=== PATIENT | male | born 1960 | race Caucasian/White ===

== ENCOUNTER 2021-07-23 13:50 | Inpatient (IN) ==
[2021-07-23 14:56] LABS: ABS Basophils 0.1 10^3/ul (0-0.2); ABS Eosinophils 0.2 10^3/ul (0-0.6); ABS Lymphocytes 1.1 10^3/ul (1.0-4.8); ABS Monocytes 0.9 10^3/ul (0-0.8); ABS Neutrophils 11.5 10^3/ul (1.5-7.7); Eosinophil % 1.3 %; Hematocrit 25 % (42-52); Hemoglobin 8.1 g/dL (14.0-18.0); Lymphocyte % 8.3 %; Mean Corpuscular HGB Conc 32 g/dL (31-36); Mean Corpuscular Hemoglobin 27 pg (27-31); Mean Corpuscular Volume 86 fL (80-94); Platelet Count 390 10^3/uL (150-450); Red Blood Count 2.95 10^6 /uL (4.18-5.48); Red Cell Distribution Width 16 % (10-15); White Blood Count 13.9 10^3/uL (3.5-10.8)
[2021-07-23] MEDS ORDERED: Vancomycin per Pharmacy 1 EA NOTE FOLLOW UP SCH (15:00)
[2021-07-23 15:04] LABS: Activated Partial Thrombo Time 39.4 seconds (26.0-38.0); INR 2.19 (0.86-1.15)
[2021-07-23 15:09] LABS: Albumin 3.6 g/dL (3.2-5.2); Potassium 3.8 mmol/L (3.5-5.0); Total Bilirubin 0.7 mg/dL (0.2-1.0)
[2021-07-23 15:15] LABS: C Reactive Protein 130.72 mg/L (<8.01); Globulin 3.7 g/dL (2-4); Total Protein 7.3 g/dL (6.4-8.9); eGFR CKD-EPI 6.8 (>60)
[2021-07-23] MEDS ORDERED: Vancomycin per Pharmacy 1 EA NOTE FOLLOW UP PRN (15:21)
[2021-07-23] MEDS ORDERED: Vancomycin 1,500 MG in NS 0.9% 250 ml 250 ML IVPB ONE (15:30)
[2021-07-23] MEDS ORDERED: Vancomycin - DIALYSIS DOSING 1 EA NOTE FOLLOW UP SCH (16:00)
[2021-07-23] MEDS: Cefepime 2 GM in Dextrose 2 GM/50 ML BAG IV SCH (16:46)
[2021-07-23] MEDS ORDERED: Insulin GLARGINE 100 un/ml 10 ml VIAL SUBCUT SCH (21:00)
[2021-07-23] MEDS ORDERED: Enoxaparin 100 MG/ML SYR SUBCUT SCH (21:00)
[2021-07-23] MEDS: Metoprolol Succinate XL 200 mg TAB PO SCH (21:36)
[2021-07-23] MEDS: Insulin GLARGINE 100 un/ml 10 ml VIAL SUBCUT SCH (21:37)
[2021-07-23] MEDS: Heparin DRIP 25,000 UNITS BAG 25,000 UNITS/500 ML BAG IV SCH (22:47)
[2021-07-24 07:24] LABS: ABS Basophils 0.1 10^3/ul (0-0.2); ABS Eosinophils 0.2 10^3/ul (0-0.6); ABS Lymphocytes 1.1 10^3/ul (1.0-4.8); ABS Monocytes 0.9 10^3/ul (0-0.8); ABS Neutrophils 11.1 10^3/ul (1.5-7.7); Eosinophil % 1.4 %; Hematocrit 24 % (42-52); Hemoglobin 7.7 g/dL (14.0-18.0); Lymphocyte % 8.6 %; Mean Corpuscular HGB Conc 32 g/dL (31-36); Mean Corpuscular Hemoglobin 28 pg (27-31); Mean Corpuscular Volume 86 fL (80-94); Mean Platelet Volume 6.8 fL (7.4-10.4); Platelet Count 329 10^3/uL (150-450); Red Blood Count 2.78 10^6 /uL (4.18-5.48); Red Cell Distribution Width 16 % (10-15); White Blood Count 13.4 10^3/uL (3.5-10.8)
[2021-07-24 07:33] LABS: Activated Partial Thrombo Time 38.4 seconds (26.0-38.0); INR 2.07 (0.86-1.15)
[2021-07-24] MEDS: Heparin 5000 UNITS/ML 1 mL VIAL IV SCH ×2 (07:58→20:45)
[2021-07-24 08:04] LABS: Calcium 8.5 mg/dL (8.6-10.3); Potassium 4.3 mmol/L (3.5-5.0)
[2021-07-24] MEDS: Isosorbide Mononit ER 60mg TAB PO SCH (08:12)
[2021-07-24] MEDS: NFT: Multivitamins/Mins AREDS2 (NF) CAP PO SCH (10:26)
[2021-07-24 10:27] LABS: C Reactive Protein 107.69 mg/L (<8.01)
[2021-07-24] MEDS: Ondansetron ODT 4 mg TAB 4 MG TAB PO PRN (13:21)
[2021-07-24] MEDS: Heparin DRIP 25,000 UNITS BAG 25,000 UNITS/500 ML BAG IV SCH (16:11)
[2021-07-24 19:43] LABS: Hepatitis B Surface Antigen Nonreactive (Nonreactive)
[2021-07-24 19:48] LABS: Hepatitis B Core IgM Nonreactive (Nonreactive)
[2021-07-24 20:01] LABS: Hepatitis B Surface Ab Not Immune (Immune)
[2021-07-24] MEDS: Insulin GLARGINE 100 un/ml 10 ml VIAL SUBCUT SCH (20:07)
[2021-07-24] MEDS: Metoprolol Succinate XL 200 mg TAB PO SCH (20:09)
[2021-07-25 03:26] LABS: ABS Basophils 0.1 10^3/ul (0-0.2); ABS Eosinophils 0.1 10^3/ul (0-0.6); ABS Lymphocytes 0.9 10^3/ul (1.0-4.8); ABS Monocytes 0.7 10^3/ul (0-0.8); ABS Neutrophils 9.8 10^3/ul (1.5-7.7); Hematocrit 25 % (42-52); Hemoglobin 7.9 g/dL (14.0-18.0); Lymphocyte % 7.7 %; Mean Corpuscular HGB Conc 32 g/dL (31-36); Mean Corpuscular Hemoglobin 27 pg (27-31); Mean Corpuscular Volume 86 fL (80-94); Mean Platelet Volume 7.3 fL (7.4-10.4); Nucleated Red Blood Cells % 0.1; Platelet Count 325 10^3/uL (150-450); Red Blood Count 2.92 10^6 /uL (4.18-5.48); Red Cell Distribution Width 16 % (10-15); White Blood Count 11.6 10^3/uL (3.5-10.8)
[2021-07-25 05:36] LABS: Calcium 8.8 mg/dL (8.6-10.3); Magnesium 2.4 mg/dL (1.9-2.7); Potassium 4.9 mmol/L (3.5-5.0); Vancomycin Random 9.9 mcg/mL; eGFR CKD-EPI 7.4 (>60)
[2021-07-25] MEDS ORDERED: Vancomycin Random Level NOTE FOLLOW UP ONE (06:00)
[2021-07-25] MEDS: NFT: Multivitamins/Mins AREDS2 (NF) CAP PO SCH (07:29)
[2021-07-25] MEDS: Heparin 5000 UNITS/ML 1 mL VIAL IV SCH ×2 (10:34→21:46)
[2021-07-25] MEDS: Isosorbide Mononit ER 60mg TAB PO SCH (11:50)
[2021-07-25] MEDS ORDERED: fentaNYL 250 mcg/5 ml 50 MCG/ML 5 ml VIAL (250 MCG) ONE (14:34)
[2021-07-25] MEDS ORDERED: Phenylephrine 40 mcg/mL 10mL (400mcg) SYRINGE ONE (14:36)
[2021-07-25] MEDS ORDERED: Propofol 10 MG/ML 20 ML BTL ONE (14:36)
[2021-07-25] MEDS ORDERED: Labetalol IV 5 MG/ML 20 ml VIAL ONE (14:36)
[2021-07-25] MEDS ORDERED: Phenylephrine IV 10 MG/ML 1 ml VIAL ONE (14:36)
[2021-07-25] MEDS ORDERED: EPHEDrine (Pressors) 50 MG/ML VIAL ONE (14:36)
[2021-07-25] MEDS ORDERED: Ondansetron 4 mg VIAL 2 MG/ML 2 ml VIAL ONE (14:36)
[2021-07-25] MEDS ORDERED: Esmolol 10 MG/ML 10 ML (100 mg) ONE (14:36)
[2021-07-25] MEDS ORDERED: Cisatracurium 2 MG/ML MDV 5 ML ONE ×2 (14:38→17:10)
[2021-07-25] MEDS ORDERED: Midazolam 2 mg/2 ml VIAL 1 mg/ml 2 ml VIAL (2 mg) ONE (14:38)
[2021-07-25] MEDS ORDERED: Succinylcholine 200 mg VIAL 20 mg/ml 10 ml VIAL (200 mg) ONE (14:40)
[2021-07-25] MEDS ORDERED: Heparin 1,000 UNIT/ML 10 ml (10,000 UNITS) CATHLAB/DIALYSIS ONE (15:07)
[2021-07-25] MEDS ORDERED: Iodixanol 320 (CONTRAST) 100 ML SDV ONE (15:18)
[2021-07-25] MEDS ORDERED: Lidocaine 1% MPF 5 ML VIAL ONE (15:18)
[2021-07-25] MEDS ORDERED: Heparin 2 UNITS/ML IVPREMIX 3,000 UNIT/1,500 ML BAG IV ONE (15:19)
[2021-07-25] MEDS ORDERED: nitroGLYCERIN DRIP (PHA MIX) 25,000 MCG/250 ML BAG ONE (15:43)
[2021-07-25] MEDS ORDERED: Vancomycin 1,250 MG IV x ONCE IVPB ONE (18:00)
[2021-07-25] MEDS ORDERED: Propofol 10 mg/ml 100 ML BTL 100 ML ONE (19:06)
[2021-07-25] MEDS: Propofol 10 mg/ml 100 ML BTL 100 ML IV SCH ×2 (19:56→22:51)
[2021-07-25 21:46] LABS: PCO2 Arterial 35 mmHg (35-45); PO2 Arterial 214 mmHg (80-100)
[2021-07-25] MEDS: Cefepime 2 GM in Dextrose 2 GM/50 ML BAG IV SCH (21:46)
[2021-07-25] MEDS ORDERED: Insulin GLARGINE 100 un/ml 10 ml VIAL SUBCUT ONE (22:05)
[2021-07-25] MEDS: Insulin GLARGINE 100 un/ml 10 ml VIAL SUBCUT SCH (22:09)
[2021-07-26] MEDS: Heparin DRIP 25,000 UNITS BAG 25,000 UNITS/500 ML BAG IV SCH ×2 (01:37→14:48)
[2021-07-26] MEDS: Propofol 10 mg/ml 100 ML BTL 100 ML IV SCH ×2 (01:38→05:14)
[2021-07-26 04:02] LABS: ABS Basophils 0.1 10^3/ul (0-0.2); ABS Eosinophils 0.1 10^3/ul (0-0.6); ABS Monocytes 0.7 10^3/ul (0-0.8); ABS Neutrophils 8.6 10^3/ul (1.5-7.7); Eosinophil % 1.4 %; Hematocrit 20 % (42-52); Hemoglobin 6.8 g/dL (14.0-18.0); Lymphocyte % 9.2 %; Mean Corpuscular HGB Conc 34 g/dL (31-36); Mean Corpuscular Hemoglobin 29 pg (27-31); Mean Corpuscular Volume 85 fL (80-94); Platelet Count 276 10^3/uL (150-450); Red Blood Count 2.39 10^6 /uL (4.18-5.48); Red Cell Distribution Width 16 % (10-15); White Blood Count 10.5 10^3/uL (3.5-10.8)
[2021-07-26 05:21] LABS: Calcium 7.7 mg/dL (8.6-10.3); Magnesium 2.3 mg/dL (1.9-2.7); Potassium 4.6 mmol/L (3.5-5.0)
[2021-07-26 06:29] LABS: eGFR CKD-EPI 6.5 (>60)
[2021-07-26] MEDS: NFT: Multivitamins/Mins AREDS2 (NF) CAP PO SCH (08:17)
[2021-07-26] MEDS: oxyCODONE/Acetamin 5/325 mg TAB PO PRN (16:17)
[2021-07-26] MEDS ORDERED: Magnesium Sulfate IV 1GM/100ML 1 GM/100 ML BAG IV ONE (17:27)
[2021-07-26] MEDS ORDERED: Lorazepam PYXIS KEY ONE (17:37)
[2021-07-26] MEDS: Insulin GLARGINE 100 un/ml 10 ml VIAL SUBCUT SCH (21:43)
[2021-07-27] MEDS: Heparin DRIP 25,000 UNITS BAG 25,000 UNITS/500 ML BAG IV SCH ×2 (02:55→15:40)
[2021-07-27 04:51] LABS: ABS Basophils 0.1 10^3/ul (0-0.2); ABS Eosinophils 0.2 10^3/ul (0-0.6); ABS Lymphocytes 0.8 10^3/ul (1.0-4.8); ABS Neutrophils 8.7 10^3/ul (1.5-7.7); Eosinophil % 1.4 %; Hematocrit 23 % (42-52); Hemoglobin 7.4 g/dL (14.0-18.0); Lymphocyte % 7.7 %; Mean Corpuscular HGB Conc 33 g/dL (31-36); Mean Corpuscular Hemoglobin 28 pg (27-31); Mean Corpuscular Volume 87 fL (80-94); Mean Platelet Volume 7.5 fL (7.4-10.4); Platelet Count 284 10^3/uL (150-450); Red Blood Count 2.61 10^6 /uL (4.18-5.48); Red Cell Distribution Width 16 % (10-15); White Blood Count 10.8 10^3/uL (3.5-10.8)
[2021-07-27 04:54] LABS: INR 1.93 (0.86-1.15)
[2021-07-27 05:56] LABS: Calcium 8.6 mg/dL (8.6-10.3); Magnesium 2.6 mg/dL (1.9-2.7); Potassium 4.6 mmol/L (3.5-5.0)
[2021-07-27 06:07] LABS: eGFR CKD-EPI 7.9 (>60)
[2021-07-27] MEDS ORDERED: Multivitamins/Minerals TAB PO SCH (09:00)
[2021-07-27] MEDS: Isosorbide Mononit ER 60mg TAB PO SCH (09:22)
[2021-07-27] MEDS: oxyCODONE/Acetamin 5/325 mg TAB PO PRN (10:51)
[2021-07-27] MEDS: Insulin GLARGINE 100 un/ml 10 ml VIAL SUBCUT SCH (21:45)
[2021-07-28] MEDS: Heparin DRIP 25,000 UNITS BAG 25,000 UNITS/500 ML BAG IV SCH ×2 (04:13→18:10)
[2021-07-28] MEDS ORDERED: Vancomycin Random Level NOTE FOLLOW UP ONE (06:00)
[2021-07-28 06:14] LABS: ABS Basophils 0.1 10^3/ul (0-0.2); ABS Eosinophils 0.1 10^3/ul (0-0.6); ABS Lymphocytes 0.9 10^3/ul (1.0-4.8); ABS Monocytes 0.7 10^3/ul (0-0.8); ABS Neutrophils 7.6 10^3/ul (1.5-7.7); Eosinophil % 1.5 %; Hematocrit 24 % (42-52); Lymphocyte % 9.3 %; Mean Corpuscular HGB Conc 33 g/dL (31-36); Mean Corpuscular Hemoglobin 28 pg (27-31); Mean Corpuscular Volume 86 fL (80-94); Mean Platelet Volume 7.1 fL (7.4-10.4); Platelet Count 276 10^3/uL (150-450); Red Blood Count 2.86 10^6 /uL (4.18-5.48); Red Cell Distribution Width 16 % (10-15); White Blood Count 9.5 10^3/uL (3.5-10.8)
[2021-07-28 07:37] LABS: Calcium 8.7 mg/dL (8.6-10.3); Magnesium 2.8 mg/dL (1.9-2.7); Potassium 5.4 mmol/L (3.5-5.0); Vancomycin Random 16.1 mcg/mL
[2021-07-28] MEDS: oxyCODONE/Acetamin 5/325 mg TAB PO PRN ×2 (08:20→15:53)
[2021-07-28] MEDS: Isosorbide Mononit ER 60mg TAB PO SCH (08:21)
[2021-07-28] MEDS: PTO:Multivitamins/Mins AREDS2 (NF) CAP PO SCH (10:09)
[2021-07-28 15:01] LABS: C Reactive Protein 165.08 mg/L (<8.01)
[2021-07-28] MEDS: Cefepime 2 GM in Dextrose 2 GM/50 ML BAG IV SCH (16:21)
[2021-07-28] MEDS ORDERED: Vancomycin 1000 MG in NS 0.9% 250 ML IVPB ONE (18:00)
[2021-07-28] MEDS: Insulin GLARGINE 100 un/ml 10 ml VIAL SUBCUT SCH (20:27)
[2021-07-29 05:57] LABS: Calcium 8.5 mg/dL (8.6-10.3); Magnesium 2.4 mg/dL (1.9-2.7); Potassium 4.4 mmol/L (3.5-5.0)
[2021-07-29 06:01] LABS: eGFR CKD-EPI 9.3 (>60)
[2021-07-29 06:02] LABS: ABS Basophils 0.1 10^3/ul (0-0.2); ABS Eosinophils 0.2 10^3/ul (0-0.6); ABS Lymphocytes 0.8 10^3/ul (1.0-4.8); ABS Monocytes 0.7 10^3/ul (0-0.8); ABS Neutrophils 6.1 10^3/ul (1.5-7.7); Hematocrit 26 % (42-52); Hemoglobin 8.5 g/dL (14.0-18.0); Lymphocyte % 10.2 %; Mean Corpuscular HGB Conc 33 g/dL (31-36); Mean Corpuscular Hemoglobin 29 pg (27-31); Mean Corpuscular Volume 88 fL (80-94); Mean Platelet Volume 7.6 fL (7.4-10.4); Platelet Count 276 10^3/uL (150-450); Red Blood Count 2.93 10^6 /uL (4.18-5.48); Red Cell Distribution Width 17 % (10-15); White Blood Count 7.8 10^3/uL (3.5-10.8)
[2021-07-29] MEDS: Heparin DRIP 25,000 UNITS BAG 25,000 UNITS/500 ML BAG IV SCH ×2 (06:22→20:01)
[2021-07-29] MEDS: Isosorbide Mononit ER 60mg TAB PO SCH (08:44)
[2021-07-29] MEDS: PTO:Multivitamins/Mins AREDS2 (NF) CAP PO SCH (10:38)
[2021-07-29] MEDS: Insulin GLARGINE 100 un/ml 10 ml VIAL SUBCUT SCH (20:51)
[2021-07-30 05:59] LABS: ABS Basophils 0.1 10^3/ul (0-0.2); ABS Eosinophils 0.2 10^3/ul (0-0.6); ABS Lymphocytes 0.9 10^3/ul (1.0-4.8); ABS Monocytes 0.9 10^3/ul (0-0.8); ABS Neutrophils 8.3 10^3/ul (1.5-7.7); Eosinophil % 2.2 %; Hematocrit 27 % (42-52); Hemoglobin 8.8 g/dL (14.0-18.0); Lymphocyte % 9.1 %; Mean Corpuscular HGB Conc 32 g/dL (31-36); Mean Corpuscular Hemoglobin 28 pg (27-31); Mean Corpuscular Volume 87 fL (80-94); Mean Platelet Volume 7.6 fL (7.4-10.4); Platelet Count 285 10^3/uL (150-450); Red Blood Count 3.14 10^6 /uL (4.18-5.48); Red Cell Distribution Width 17 % (10-15); White Blood Count 10.5 10^3/uL (3.5-10.8)
[2021-07-30] MEDS ORDERED: Vancomycin Random Level NOTE FOLLOW UP ONE (06:00)
[2021-07-30 06:22] LABS: Calcium 8.7 mg/dL (8.6-10.3); Magnesium 2.6 mg/dL (1.9-2.7); eGFR CKD-EPI 7.2 (>60)
[2021-07-30] MEDS: Isosorbide Mononit ER 60mg TAB PO SCH (08:43)
[2021-07-30] MEDS: PTO:Multivitamins/Mins AREDS2 (NF) CAP PO SCH (08:45)
[2021-07-30] MEDS: Heparin DRIP 25,000 UNITS BAG 25,000 UNITS/500 ML BAG IV SCH ×2 (09:37→22:45)
[2021-07-30] MEDS ORDERED: Senna TAB 8.6 mg TAB PO PRN (10:55)
[2021-07-30] MEDS: Magnesium Hydroxide LIQ 30 ML UDC PO PRN (11:10)
[2021-07-30] MEDS: Ondansetron ODT 4 mg TAB 4 MG TAB PO PRN (12:33)
[2021-07-30] MEDS: ceFAZolin 2 GM in NS PREMIX 2 GM/100 ML BAG IVPB SCH (20:53)
[2021-07-30] MEDS: Insulin GLARGINE 100 un/ml 10 ml VIAL SUBCUT SCH (21:06)
[2021-07-31 05:46] LABS: Hematocrit 27 % (42-52); Hemoglobin 8.6 g/dL (14.0-18.0); Mean Corpuscular HGB Conc 33 g/dL (31-36); Mean Corpuscular Hemoglobin 28 pg (27-31); Mean Corpuscular Volume 87 fL (80-94); Mean Platelet Volume 7.6 fL (7.4-10.4); Platelet Count 281 10^3/uL (150-450); Red Blood Count 3.03 10^6 /uL (4.18-5.48); Red Cell Distribution Width 17 % (10-15); White Blood Count 9.2 10^3/uL (3.5-10.8)
[2021-07-31 06:23] LABS: Calcium 8.5 mg/dL (8.6-10.3); Potassium 4.5 mmol/L (3.5-5.0); eGFR CKD-EPI 10.2 (>60)
[2021-07-31] MEDS: PTO:Multivitamins/Mins AREDS2 (NF) CAP PO SCH (08:23)
[2021-07-31] MEDS: Isosorbide Mononit ER 60mg TAB PO SCH (08:38)
[2021-07-31] MEDS ORDERED: HYDROcodone/ACETAMIN 5/325 mg TAB PO PRN (10:31)
[2021-07-31] MEDS ORDERED: Prochlorperazine 5 mg/ml 2 ml VIAL (10 mg) IV PRN (10:31)
[2021-07-31] MEDS ORDERED: Naloxone 0.4 mg VIAL 0.4 mg/ml 1 ml VIAL IV PRN (10:31)
[2021-07-31] MEDS ORDERED: fentaNYL 100 mcg/2 ml 50 MCG/ML VIAL IV PRN (10:31)
[2021-07-31] MEDS ORDERED: Bupivacaine 0.5% SDV PF 30ML VIAL ONE (11:59)
[2021-07-31] MEDS ORDERED: Bupivacaine 0.25% EPI 200,000 30 ML SDV ONE (12:01)
[2021-07-31] MEDS ORDERED: fentaNYL 100 mcg/2 ml 50 MCG/ML VIAL ONE ×2 (12:14→13:25)
[2021-07-31] MEDS ORDERED: Lidocaine 2% PF 5 ML VIAL ONE (12:14)
[2021-07-31] MEDS ORDERED: Midazolam 2 mg/2 ml VIAL 1 mg/ml 2 ml VIAL (2 mg) ONE (12:14)
[2021-07-31] MEDS ORDERED: Propofol 10 MG/ML 20 ML BTL ONE (12:14)
[2021-07-31] MEDS: Magnesium Hydroxide LIQ 30 ML UDC PO PRN (14:31)
[2021-07-31 15:18] LABS: ABS Basophils 0.1 10^3/ul (0-0.2); ABS Eosinophils 0.2 10^3/ul (0-0.6); ABS Lymphocytes 0.9 10^3/ul (1.0-4.8); ABS Monocytes 0.9 10^3/ul (0-0.8); ABS Neutrophils 7.2 10^3/ul (1.5-7.7); Eosinophil % 2.4 %; Hematocrit 25 % (42-52); Lymphocyte % 9.9 %; Mean Corpuscular HGB Conc 33 g/dL (31-36); Mean Corpuscular Hemoglobin 28 pg (27-31); Mean Corpuscular Volume 86 fL (80-94); Mean Platelet Volume 6.9 fL (7.4-10.4); Platelet Count 295 10^3/uL (150-450); Red Blood Count 2.84 10^6 /uL (4.18-5.48); Red Cell Distribution Width 17 % (10-15); White Blood Count 9.5 10^3/uL (3.5-10.8)
[2021-07-31] MEDS: Heparin DRIP 25,000 UNITS BAG 25,000 UNITS/500 ML BAG IV SCH (17:09)
[2021-07-31] MEDS: Heparin 5000 UNITS/ML 1 mL VIAL IV SCH (17:11)
[2021-07-31] MEDS: Insulin GLARGINE 100 un/ml 10 ml VIAL SUBCUT SCH (22:39)
[2021-08-01 04:45] LABS: Hematocrit 27 % (42-52); Hemoglobin 8.7 g/dL (14.0-18.0); Mean Platelet Volume 7.3 fL (7.4-10.4); Platelet Count 269 10^3/uL (150-450)
[2021-08-01 05:28] LABS: Calcium 8.4 mg/dL (8.6-10.3); eGFR CKD-EPI 7.5 (>60)
[2021-08-01] MEDS: Isosorbide Mononit ER 60mg TAB PO SCH (07:58)
[2021-08-01] MEDS: PTO:Multivitamins/Mins AREDS2 (NF) CAP PO SCH (07:59)
[2021-08-01 16:48] LABS: ABS Basophils 0.1 10^3/ul (0-0.2); ABS Eosinophils 0.2 10^3/ul (0-0.6); ABS Lymphocytes 0.9 10^3/ul (1.0-4.8); ABS Monocytes 0.9 10^3/ul (0-0.8); ABS Neutrophils 7.6 10^3/ul (1.5-7.7); Eosinophil % 2.3 %; Hematocrit 28 % (42-52); Hemoglobin 9.1 g/dL (14.0-18.0); Mean Corpuscular HGB Conc 33 g/dL (31-36); Mean Corpuscular Hemoglobin 29 pg (27-31); Mean Corpuscular Volume 87 fL (80-94); Mean Platelet Volume 7.4 fL (7.4-10.4); Platelet Count 313 10^3/uL (150-450); Red Blood Count 3.17 10^6 /uL (4.18-5.48); Red Cell Distribution Width 17 % (10-15); White Blood Count 9.7 10^3/uL (3.5-10.8)
[2021-08-01] MEDS ORDERED: Polyethylene Glycol 3350 17 GM PACKET PO ONE (18:00)
[2021-08-01] MEDS: ceFAZolin 2 GM in NS PREMIX 2 GM/100 ML BAG IVPB SCH (18:05)
[2021-08-01] MEDS: Heparin 5000 UNITS/ML 1 mL VIAL IV SCH (19:08)
[2021-08-01] MEDS: Insulin GLARGINE 100 un/ml 10 ml VIAL SUBCUT SCH (20:42)
[2021-08-02] MEDS: Heparin DRIP 25,000 UNITS BAG 25,000 UNITS/500 ML BAG IV SCH ×2 (03:51→17:16)
[2021-08-02 05:42] LABS: ABS Basophils 0.1 10^3/ul (0-0.2); ABS Eosinophils 0.2 10^3/ul (0-0.6); ABS Monocytes 0.9 10^3/ul (0-0.8); ABS Neutrophils 7.1 10^3/ul (1.5-7.7); Eosinophil % 2.7 %; Hematocrit 28 % (42-52); Hemoglobin 9.2 g/dL (14.0-18.0); Lymphocyte % 10.3 %; Mean Corpuscular HGB Conc 33 g/dL (31-36); Mean Corpuscular Hemoglobin 29 pg (27-31); Mean Corpuscular Volume 87 fL (80-94); Mean Platelet Volume 7.4 fL (7.4-10.4); Platelet Count 320 10^3/uL (150-450); Red Blood Count 3.22 10^6 /uL (4.18-5.48); Red Cell Distribution Width 17 % (10-15); White Blood Count 9.2 10^3/uL (3.5-10.8)
[2021-08-02 06:20] LABS: Calcium 8.6 mg/dL (8.6-10.3); Potassium 4.4 mmol/L (3.5-5.0); eGFR CKD-EPI 9.8 (>60)
[2021-08-02] MEDS: PTO:Multivitamins/Mins AREDS2 (NF) CAP PO SCH (08:38)
[2021-08-02] MEDS: Isosorbide Mononit ER 60mg TAB PO SCH (08:39)
[2021-08-02] MEDS: Heparin 5000 UNITS/ML 1 mL VIAL IV SCH (09:28)
[2021-08-02] MEDS: Insulin GLARGINE 100 un/ml 10 ml VIAL SUBCUT SCH (21:20)
[2021-08-03] MEDS: Heparin DRIP 25,000 UNITS BAG 25,000 UNITS/500 ML BAG IV SCH ×2 (05:48→18:40)
[2021-08-03] MEDS: Isosorbide Mononit ER 60mg TAB PO SCH (09:17)
[2021-08-03] MEDS: PTO:Multivitamins/Mins AREDS2 (NF) CAP PO SCH (09:19)
[2021-08-03] MEDS: Insulin GLARGINE 100 un/ml 10 ml VIAL SUBCUT SCH (21:21)
[2021-08-04] MEDS: Heparin DRIP 25,000 UNITS BAG 25,000 UNITS/500 ML BAG IV SCH ×2 (07:29→20:27)
[2021-08-04 07:47] LABS: eGFR CKD-EPI 5.6 (>60)
[2021-08-04] MEDS ORDERED: oxyCODONE/Acetamin 5/325 mg TAB PO ONE (09:48)
[2021-08-04] MEDS: PTO:Multivitamins/Mins AREDS2 (NF) CAP PO SCH (09:49)
[2021-08-04] MEDS: Isosorbide Mononit ER 60mg TAB PO SCH (09:49)
[2021-08-04] MEDS ORDERED: Warfarin per PHARMACY **NOTE FOLLOW UP SCH (12:00)
[2021-08-04 12:47] LABS: C Reactive Protein 64.43 mg/L (<8.01)
[2021-08-04 13:59] LABS: INR 1.57 (0.86-1.15)
[2021-08-04 16:57] LABS: ABS Basophils 0.1 10^3/ul (0-0.2); ABS Eosinophils 0.1 10^3/ul (0-0.6); ABS Lymphocytes 0.3 10^3/ul (1.0-4.8); ABS Monocytes 0.6 10^3/ul (0-0.8); ABS Neutrophils 5.3 10^3/ul (1.5-7.7); Eosinophil % 1.8 %; Hematocrit 30 % (42-52); Hemoglobin 9.4 g/dL (14.0-18.0); Lymphocyte % 4.1 %; Mean Corpuscular HGB Conc 32 g/dL (31-36); Mean Corpuscular Hemoglobin 28 pg (27-31); Mean Corpuscular Volume 90 fL (80-94); Mean Platelet Volume 7.5 fL (7.4-10.4); Platelet Count 223 10^3/uL (150-450); Red Blood Count 3.32 10^6 /uL (4.18-5.48); Red Cell Distribution Width 18 % (10-15); White Blood Count 6.3 10^3/uL (3.5-10.8)
[2021-08-04] MEDS ORDERED: ceFAZolin 2 GM PREMIX 2 GM/50 ML BAG IVPB SCH (17:00)
[2021-08-04] MEDS ORDERED: Lactated Ringers 500 ml BAG 500 ML IV SCH (17:00)
[2021-08-04 17:26] LABS: Calcium 9.1 mg/dL (8.6-10.3); Potassium 4.6 mmol/L (3.5-5.0)
[2021-08-04 17:31] LABS: eGFR CKD-EPI 10.4 (>60)
[2021-08-04] MEDS ORDERED: Piperacillin/Tazobac ADVAN 3.375 GM in NS 0.9% 100 ml BAG 100 ML IV ONE (18:00)
[2021-08-04] MEDS ORDERED: Zosyn per Pharmacy NOTE FOLLOW UP SCH (18:00)
[2021-08-04] MEDS ORDERED: Vancomycin 1,500 MG in NS 0.9% 250 ml 250 ML IVPB ONE (18:30)
[2021-08-04] MEDS: Insulin GLARGINE 100 un/ml 10 ml VIAL SUBCUT SCH (22:54)
[2021-08-05] MEDS ORDERED: Ondansetron 4 mg VIAL 2 MG/ML 2 ml VIAL IV ONE (01:35)
[2021-08-05] MEDS ORDERED: NS 0.9% 500 ml BAG 500 ML IV SCH (02:00)
[2021-08-05] MEDS ORDERED: ZOSYN 3.375 GM Q12H per EXTENDED INFUSION IV SCH (02:00)
[2021-08-05] MEDS: Heparin DRIP 25,000 UNITS BAG 25,000 UNITS/500 ML BAG IV SCH ×2 (03:33→11:30)
[2021-08-05 06:25] LABS: Hematocrit 26 % (42-52); Hemoglobin 8.4 g/dL (14.0-18.0); Mean Corpuscular HGB Conc 32 g/dL (31-36); Mean Corpuscular Hemoglobin 28 pg (27-31); Mean Corpuscular Volume 88 fL (80-94); Mean Platelet Volume 7.5 fL (7.4-10.4); Platelet Count 252 10^3/uL (150-450); Red Blood Count 2.96 10^6 /uL (4.18-5.48); Red Cell Distribution Width 18 % (10-15); White Blood Count 6.5 10^3/uL (3.5-10.8)
[2021-08-05 06:28] LABS: INR 1.91 (0.86-1.15)
[2021-08-05 07:01] LABS: Anisocytosis 1+
[2021-08-05 07:02] LABS: ABS Basophils 0.1 10^3/ul (0-0.2); ABS Eosinophils 0.1 10^3/ul (0-0.6); ABS Lymphocytes 0.7 10^3/ul (1.0-4.8); ABS Monocytes 1.3 10^3/ul (0-0.8); ABS Neutrophils 4.3 10^3/ul (1.5-7.7); Eosinophil % 1.2 %; Lymphocyte % 11.4 %
[2021-08-05] MEDS ORDERED: Vancomycin - DIALYSIS DOSING 1 EA NOTE FOLLOW UP SCH (08:00)
[2021-08-05 08:31] LABS: Calcium 8.3 mg/dL (8.6-10.3); Potassium 4.4 mmol/L (3.5-5.0); eGFR CKD-EPI 7.9 (>60)
[2021-08-05] MEDS: Isosorbide Mononit ER 60mg TAB PO SCH (10:29)
[2021-08-05] MEDS: PTO:Multivitamins/Mins AREDS2 (NF) CAP PO SCH (10:30)
[2021-08-05] MEDS ORDERED: BEBTELOVIMAB 175 MG/2 ML VIAL IV ONE (12:00)
[2021-08-05] MEDS: Warfarin DAILY REMINDER **NOTE FOLLOW UP SCH (17:32)
[2021-08-05] MEDS: Ondansetron ODT 4 mg TAB 4 MG TAB PO PRN (20:17)
[2021-08-05] MEDS: Insulin GLARGINE 100 un/ml 10 ml VIAL SUBCUT SCH (20:18)
[2021-08-06] MEDS: Heparin DRIP 25,000 UNITS BAG 25,000 UNITS/500 ML BAG IV SCH (05:41)
[2021-08-06] MEDS: Ondansetron ODT 4 mg TAB 4 MG TAB PO PRN (05:47)
[2021-08-06 07:16] LABS: ABS Basophils 0.1 10^3/ul (0-0.2); ABS Lymphocytes 1.1 10^3/ul (1.0-4.8); ABS Neutrophils 4.6 10^3/ul (1.5-7.7); Eosinophil % 0.4 %; Hematocrit 27 % (42-52); Hemoglobin 8.8 g/dL (14.0-18.0); Lymphocyte % 16.2 %; Mean Corpuscular HGB Conc 33 g/dL (31-36); Mean Corpuscular Hemoglobin 29 pg (27-31); Mean Corpuscular Volume 87 fL (80-94); Mean Platelet Volume 7.2 fL (7.4-10.4); Platelet Count 243 10^3/uL (150-450); Red Blood Count 3.08 10^6 /uL (4.18-5.48); Red Cell Distribution Width 18 % (10-15); White Blood Count 6.8 10^3/uL (3.5-10.8)
[2021-08-06 07:35] LABS: INR 1.92 (0.86-1.15)
[2021-08-06 08:34] LABS: Calcium 8.6 mg/dL (8.6-10.3); Potassium 4.8 mmol/L (3.5-5.0)
[2021-08-06] MEDS: Isosorbide Mononit ER 60mg TAB PO SCH (08:52)
[2021-08-06 09:09] LABS: eGFR CKD-EPI 6.2 (>60)
[2021-08-06] MEDS: PTO:Multivitamins/Mins AREDS2 (NF) CAP PO SCH (11:53)
[2021-08-06] MEDS ORDERED: oxyCODONE/Acetamin 5/325 mg TAB PO ONE (14:26)
[2021-08-06] MEDS ORDERED: ceFAZolin 2 GM in NS PREMIX 2 GM/100 ML BAG IVPB SCH (17:00)
[2021-08-06] MEDS: Warfarin DAILY REMINDER **NOTE FOLLOW UP SCH (18:19)
[2021-08-06] MEDS: Insulin GLARGINE 100 un/ml 10 ml VIAL SUBCUT SCH (20:32)
[2021-08-06 22:10] LABS: Activated Partial Thrombo Time 35.7 seconds (26.0-38.0); INR 1.91 (0.86-1.15)
[2021-08-06] MEDS: Heparin 5000 UNITS/ML 1 mL VIAL IV SCH (23:08)
[2021-08-07] MEDS ORDERED: Morphine 2 MG/ML SYRINGE IV ONE (04:50)
[2021-08-07] MEDS: Heparin DRIP 25,000 UNITS BAG 25,000 UNITS/500 ML BAG IV SCH (05:09)
[2021-08-07 05:28] LABS: ABS Basophils 0.1 10^3/ul (0-0.2); ABS Lymphocytes 0.6 10^3/ul (1.0-4.8); ABS Monocytes 0.5 10^3/ul (0-0.8); ABS Neutrophils 5.6 10^3/ul (1.5-7.7); Eosinophil % 0.6 %; Hematocrit 27 % (42-52); Hemoglobin 8.9 g/dL (14.0-18.0); Mean Corpuscular HGB Conc 33 g/dL (31-36); Mean Corpuscular Hemoglobin 28 pg (27-31); Mean Corpuscular Volume 87 fL (80-94); Mean Platelet Volume 7.4 fL (7.4-10.4); Platelet Count 274 10^3/uL (150-450); Red Blood Count 3.15 10^6 /uL (4.18-5.48); Red Cell Distribution Width 17 % (10-15); White Blood Count 6.8 10^3/uL (3.5-10.8)
[2021-08-07 05:48] LABS: INR 2.15 (0.86-1.15)
[2021-08-07 06:00] LABS: Calcium 8.5 mg/dL (8.6-10.3); Potassium 4.9 mmol/L (3.5-5.0); eGFR CKD-EPI 8.9 (>60)
[2021-08-07] MEDS: Heparin 5000 UNITS/ML 1 mL VIAL IV SCH (07:35)
[2021-08-07] MEDS: Isosorbide Mononit ER 60mg TAB PO SCH (09:04)
[2021-08-07] MEDS: PTO:Multivitamins/Mins AREDS2 (NF) CAP PO SCH (10:29)
[2021-08-07 14:45] VITALS: BP 105/63
== END 2021-08-07 15:09 | disposition swing bed (61) | DRG 252 ==
LOC: SSU 13:50 → SUATTDRO 13:50 → ICU 07-25 19:24 → SSU 07-26 20:22 → MED 08-05 04:22
PROVIDERS: ADMIT Orthopaedic Surgery Sports Medicine; ATTEND Internal Medicine

== ENCOUNTER 2021-08-07 15:21 | Inpatient (IN) ==
[2021-08-07] MEDS ORDERED: Dextrose 50% Syringe 50 ml 25 GM/50 ML SYRINGE IV PUSH PRN (15:56)
[2021-08-07] MEDS ORDERED: Polyethylene Glycol 3350 17 GM PACKET PO PRN (15:56)
[2021-08-07] MEDS ORDERED: Warfarin per PHARMACY **NOTE FOLLOW UP SCH (16:00)
[2021-08-07] MEDS: Warfarin DAILY REMINDER **NOTE FOLLOW UP SCH (16:57)
[2021-08-07] MEDS: Insulin GLARGINE 100 un/ml 10 ml VIAL SUBCUT SCH (21:36)
[2021-08-08 06:07] LABS: ABS Basophils 0.1 10^3/ul (0-0.2); ABS Eosinophils 0.2 10^3/ul (0-0.6); ABS Lymphocytes 1.4 10^3/ul (1.0-4.8); ABS Monocytes 0.6 10^3/ul (0-0.8); ABS Neutrophils 7.2 10^3/ul (1.5-7.7); Eosinophil % 1.9 %; Hematocrit 28 % (42-52); Hemoglobin 8.8 g/dL (14.0-18.0); Lymphocyte % 15.2 %; Mean Corpuscular HGB Conc 32 g/dL (31-36); Mean Corpuscular Hemoglobin 28 pg (27-31); Mean Corpuscular Volume 87 fL (80-94); Mean Platelet Volume 7.7 fL (7.4-10.4); Platelet Count 316 10^3/uL (150-450); Red Blood Count 3.17 10^6 /uL (4.18-5.48); Red Cell Distribution Width 18 % (10-15); White Blood Count 9.5 10^3/uL (3.5-10.8)
[2021-08-08 06:19] LABS: INR 2.51 (0.86-1.15)
[2021-08-08 06:56] LABS: Calcium 8.5 mg/dL (8.6-10.3); eGFR CKD-EPI 6.6 (>60)
[2021-08-08 07:02] LABS: Potassium 5.6 mmol/L (3.5-5.0)
[2021-08-08] MEDS ORDERED: Isosorbide Mononit ER 60mg TAB PO SCH (09:00)
[2021-08-08] MEDS: oxyCODONE/Acetamin 5/325 mg TAB PO PRN (11:17)
[2021-08-08] MEDS: Warfarin DAILY REMINDER **NOTE FOLLOW UP SCH (17:19)
[2021-08-08] MEDS: ceFAZolin 2 GM in NS PREMIX 2 GM/100 ML BAG IVPB SCH (17:23)
[2021-08-08] MEDS: Insulin GLARGINE 100 un/ml 10 ml VIAL SUBCUT SCH (21:53)
[2021-08-09 04:59] LABS: ABS Eosinophils 0.1 10^3/ul (0-0.6); ABS Lymphocytes 1.3 10^3/ul (1.0-4.8); ABS Monocytes 0.5 10^3/ul (0-0.8); ABS Neutrophils 7.2 10^3/ul (1.5-7.7); Eosinophil % 0.6 %; Hematocrit 27 % (42-52); Hemoglobin 8.8 g/dL (14.0-18.0); Mean Corpuscular HGB Conc 32 g/dL (31-36); Mean Corpuscular Hemoglobin 28 pg (27-31); Mean Corpuscular Volume 88 fL (80-94); Mean Platelet Volume 7.7 fL (7.4-10.4); Nucleated Red Blood Cells % 0.1; Platelet Count 302 10^3/uL (150-450); Red Blood Count 3.12 10^6 /uL (4.18-5.48); Red Cell Distribution Width 18 % (10-15); White Blood Count 9.1 10^3/uL (3.5-10.8)
[2021-08-09 05:06] LABS: INR 4.02 (0.86-1.15)
[2021-08-09 05:42] LABS: Calcium 8.6 mg/dL (8.6-10.3); Potassium 5.6 mmol/L (3.5-5.0); eGFR CKD-EPI 8.6 (>60)
[2021-08-09] MEDS ORDERED: SODIUM ZIRCONIUM CYCLOSILICATE 5 GM PACKET PO ONE (06:31)
[2021-08-09] MEDS: Isosorbide Mononit ER 30mg TAB PO SCH (08:43)
[2021-08-09 14:05] LABS: Anion Gap 18 mmol/L (2-11); Blood Urea Nitrogen 61 mg/dL (6-24); CO2 Carbon Dioxide 24 mmol/L (22-32); Calcium 8.8 mg/dL (8.6-10.3); Chloride 90 mmol/L (101-111); Glucose 139 mg/dL (70-100); Sodium 132 mmol/L (135-145)
[2021-08-09 15:32] LABS: Folate > 20.00 ng/mL (5.90-24.80)
[2021-08-09 15:33] LABS: Vitamin B12 > 1450 pg/mL (180-914)
[2021-08-09] MEDS ORDERED: Warfarin - No Order Today **NOTE FOLLOW UP ONE (17:00)
[2021-08-09] MEDS: Warfarin DAILY REMINDER **NOTE FOLLOW UP SCH (17:47)
[2021-08-09] MEDS: Insulin GLARGINE 100 un/ml 10 ml VIAL SUBCUT SCH (21:28)
[2021-08-10] MEDS: oxyCODONE/Acetamin 5/325 mg TAB PO PRN (00:21)
[2021-08-10 06:51] LABS: ABS Basophils 0.1 10^3/ul (0-0.2); ABS Eosinophils 0.1 10^3/ul (0-0.6); ABS Lymphocytes 1.5 10^3/ul (1.0-4.8); ABS Monocytes 0.6 10^3/ul (0-0.8); ABS Neutrophils 7.3 10^3/ul (1.5-7.7); Eosinophil % 1.5 %; Hematocrit 29 % (42-52); Hemoglobin 9.3 g/dL (14.0-18.0); Lymphocyte % 15.8 %; Mean Corpuscular HGB Conc 33 g/dL (31-36); Mean Corpuscular Hemoglobin 29 pg (27-31); Mean Corpuscular Volume 88 fL (80-94); Mean Platelet Volume 8.1 fL (7.4-10.4); Nucleated Red Blood Cells % 0.2; Platelet Count 303 10^3/uL (150-450); Red Blood Count 3.22 10^6 /uL (4.18-5.48); Red Cell Distribution Width 18 % (10-15); White Blood Count 9.7 10^3/uL (3.5-10.8)
[2021-08-10 06:53] LABS: INR 4.86 (0.86-1.15)
[2021-08-10 06:55] LABS: Calcium 8.6 mg/dL (8.6-10.3); eGFR CKD-EPI 6.8 (>60)
[2021-08-10 07:06] LABS: Potassium 5.4 mmol/L (3.5-5.0)
[2021-08-10] MEDS: Isosorbide Mononit ER 30mg TAB PO SCH (09:26)
[2021-08-10] MEDS ORDERED: Warfarin - No Order Today **NOTE FOLLOW UP ONE (17:00)
[2021-08-10] MEDS: Warfarin DAILY REMINDER **NOTE FOLLOW UP SCH (18:07)
[2021-08-10] MEDS: Insulin GLARGINE 100 un/ml 10 ml VIAL SUBCUT SCH (21:30)
[2021-08-11] MEDS: oxyCODONE/Acetamin 5/325 mg TAB PO PRN (00:07)
[2021-08-11 06:49] LABS: ABS Basophils 0.1 10^3/ul (0-0.2); ABS Eosinophils 0.2 10^3/ul (0-0.6); ABS Lymphocytes 1.2 10^3/ul (1.0-4.8); ABS Monocytes 0.6 10^3/ul (0-0.8); ABS Neutrophils 7.3 10^3/ul (1.5-7.7); Eosinophil % 2.3 %; Hematocrit 25 % (42-52); Hemoglobin 8.1 g/dL (14.0-18.0); Lymphocyte % 12.7 %; Mean Corpuscular HGB Conc 32 g/dL (31-36); Mean Corpuscular Hemoglobin 29 pg (27-31); Mean Corpuscular Volume 89 fL (80-94); Mean Platelet Volume 7.8 fL (7.4-10.4); Nucleated Red Blood Cells % 0.1; Platelet Count 284 10^3/uL (150-450); Red Blood Count 2.83 10^6 /uL (4.18-5.48); Red Cell Distribution Width 18 % (10-15); White Blood Count 9.3 10^3/uL (3.5-10.8)
[2021-08-11 07:12] LABS: eGFR CKD-EPI 5.3 (>60)
[2021-08-11 07:19] LABS: Potassium 5.9 mmol/L (3.5-5.0)
[2021-08-11 07:31] LABS: INR 5.02 (0.86-1.15)
[2021-08-11] MEDS: Isosorbide Mononit ER 30mg TAB PO SCH (13:15)
[2021-08-11] MEDS ORDERED: Ondansetron 4 mg VIAL 2 MG/ML 2 ml VIAL IV PRN (14:35)
[2021-08-11] MEDS ORDERED: Warfarin - No Order Today **NOTE FOLLOW UP ONE (17:00)
[2021-08-11] MEDS: Warfarin DAILY REMINDER **NOTE FOLLOW UP SCH (17:01)
[2021-08-11] MEDS: ceFAZolin 2 GM in NS PREMIX 2 GM/100 ML BAG IVPB SCH (17:14)
[2021-08-11 17:27] LABS: C Reactive Protein 133.32 mg/L (<8.01)
[2021-08-11] MEDS: Insulin GLARGINE 100 un/ml 10 ml VIAL SUBCUT SCH (20:34)
[2021-08-11] MEDS ORDERED: Lactated Ringers 500 ml BAG 500 ML IV ONE (21:42)
[2021-08-11] MEDS ORDERED: Vancomycin 1,500 MG in NS 0.9% 250 ml 250 ML IVPB ONE (22:30)
[2021-08-12] MEDS ORDERED: NS 0.9% 500 ml BAG 500 ML IV ONE (00:12)
[2021-08-12 07:18] LABS: ABS Basophils 0.1 10^3/ul (0-0.2); ABS Eosinophils 0.2 10^3/ul (0-0.6); ABS Lymphocytes 1.3 10^3/ul (1.0-4.8); ABS Monocytes 1.4 10^3/ul (0-0.8); ABS Neutrophils 10.7 10^3/ul (1.5-7.7); ABS Nucleated RBC 0.1 10^3/ul; Eosinophil % 1.1 %; Hematocrit 30 % (42-52); Hemoglobin 9.5 g/dL (14.0-18.0); Lymphocyte % 9.6 %; Mean Corpuscular HGB Conc 32 g/dL (31-36); Mean Corpuscular Hemoglobin 29 pg (27-31); Mean Corpuscular Volume 89 fL (80-94); Mean Platelet Volume 8.2 fL (7.4-10.4); Nucleated Red Blood Cells % 0.7; Platelet Count 387 10^3/uL (150-450); Red Blood Count 3.32 10^6 /uL (4.18-5.48); Red Cell Distribution Width 18 % (10-15); White Blood Count 13.7 10^3/uL (3.5-10.8)
[2021-08-12 07:29] LABS: Potassium 5.3 mmol/L (3.5-5.0)
[2021-08-12 07:56] LABS: INR 5.14 (0.86-1.15)
[2021-08-12] MEDS ORDERED: Metoprolol Tartrate 5 mg VIAL 5 ml VIAL (1 mg/ml) IV PRN (10:28)
[2021-08-12] MEDS ORDERED: Metoprolol Tartrate 5 mg VIAL 5 ml VIAL (1 mg/ml) ONE (10:39)
[2021-08-12 11:09] VITALS: BP 126/59
[2021-08-13] MEDS ORDERED: Vancomycin Random Level NOTE FOLLOW UP ONE (06:00)
[2021-08-13 10:35] LABS: DRVVT Screen Ratio 1.44 ratio (<1.20); LAC APTT 42 sec (25 - 37); LAC INR 4.3 (0.9-1.1); Prothrombin Time(LAC) 49.1 sec (9.4 - 12.5)
[2021-08-13 11:11] LABS: Thrombin Time (Bovine), P 20.2 sec
== END 2021-08-12 10:31 | disposition short-term general hospital (02) | DRG 559 ==
LOC: MED 15:21 → SUATTDRO 15:21
PROVIDERS: ADMIT Internal Medicine; ATTEND Student in an Organized Health Care Education/Training Program

== ENCOUNTER 2021-08-12 11:10 | Inpatient (IN) ==
[2021-08-12] MEDS ORDERED: Metoprolol Tartrate 5 mg VIAL 5 ml VIAL (1 mg/ml) IV PRN ×3 (11:14→18:31)
[2021-08-12] MEDS ORDERED: Metoprolol Tartrate 5 mg VIAL 5 ml VIAL (1 mg/ml) ONE (11:16)
[2021-08-12] MEDS ORDERED: Dextrose 50% Syringe 50 ml 25 GM/50 ML SYRINGE IV PUSH PRN (11:45)
[2021-08-12] MEDS ORDERED: Ondansetron 4 mg VIAL 2 MG/ML 2 ml VIAL IV PRN (11:47)
[2021-08-12] MEDS ORDERED: Warfarin per PHARMACY **NOTE FOLLOW UP SCH (12:00)
[2021-08-12] MEDS: Insulin GLARGINE 100 un/ml 10 ml VIAL SUBCUT SCH (20:48)
[2021-08-12] MEDS: oxyCODONE/Acetamin 5/325 mg TAB PO PRN (22:06)
[2021-08-13 06:31] LABS: Albumin 3.8 g/dL (3.2-5.2); CO2 Carbon Dioxide 18 mmol/L (22-32); Calcium 9.2 mg/dL (8.6-10.3); Chloride 90 mmol/L (101-111); Sodium 130 mmol/L (135-145)
[2021-08-13 06:37] LABS: ALT < 3 U/L (7-52); Alkaline Phosphatase 108 U/L (35-149); Blood Urea Nitrogen 78 mg/dL (6-24); Glucose 195 mg/dL (70-100); Total Protein 7.8 g/dL (6.4-8.9); eGFR CKD-EPI 6.3 (>60)
[2021-08-13 06:38] LABS: Anion Gap 22 mmol/L (2-11)
[2021-08-13 08:15] LABS: Hematocrit 30 % (42-52); Hemoglobin 9.3 g/dL (14.0-18.0); Mean Corpuscular HGB Conc 32 g/dL (31-36); Mean Corpuscular Hemoglobin 28 pg (27-31); Mean Corpuscular Volume 90 fL (80-94); Mean Platelet Volume 7.6 fL (7.4-10.4); Platelet Count 349 10^3/uL (150-450); Red Blood Count 3.28 10^6 /uL (4.18-5.48); Red Cell Distribution Width 19 % (10-15); White Blood Count 13.8 10^3/uL (3.5-10.8)
[2021-08-13] MEDS: Isosorbide Mononit ER 30mg TAB PO SCH (08:29)
[2021-08-13 08:32] LABS: INR 4.99 (0.86-1.15)
[2021-08-13 09:22] LABS: Potassium Redraw 5.6 mmol/L (3.5-5.0)
[2021-08-13 09:40] LABS: ABS Basophils 0.2 10^3/ul (0-0.2); ABS Eosinophils 0.2 10^3/ul (0-0.6); ABS Lymphocytes 1.2 10^3/ul (1.0-4.8); ABS Monocytes 1.7 10^3/ul (0-0.8); ABS Neutrophils 10.5 10^3/ul (1.5-7.7); Eosinophil % 1.8 %; Lymphocyte % 8.5 %; Nucleated Red Blood Cells % 0.3
[2021-08-13] MEDS ORDERED: Warfarin - No Order Today **NOTE FOLLOW UP ONE (17:00)
[2021-08-13] MEDS ORDERED: ceFAZolin VIAL 2 GM in NS 0.9% 100 ml BAG 100 ML IVPB SCH (17:00)
[2021-08-13] MEDS: oxyCODONE/Acetamin 5/325 mg TAB PO PRN (17:03)
[2021-08-13] MEDS ORDERED: Lidocaine 2% w/ EPI 1:200,000 MPF 20 ML SDV VIAL INJ ONE (20:00)
[2021-08-13] MEDS: Insulin GLARGINE 100 un/ml 10 ml VIAL SUBCUT SCH (22:18)
[2021-08-13 23:03] LABS: Hematocrit 32 % (42-52); Hemoglobin 10.1 g/dL (14.0-18.0)
[2021-08-14] MEDS: Polyethylene Glycol 3350 17 GM PACKET PO PRN (02:23)
[2021-08-14 07:08] LABS: Albumin 3.8 g/dL (3.2-5.2); CO2 Carbon Dioxide 19 mmol/L (22-32); Chloride 92 mmol/L (101-111); INR 5.32 (0.86-1.15); Magnesium 2.6 mg/dL (1.9-2.7); Sodium 131 mmol/L (135-145)
[2021-08-14 07:12] LABS: ABS Basophils 0.1 10^3/ul (0-0.2); ABS Eosinophils 0.2 10^3/ul (0-0.6); ABS Lymphocytes 1.5 10^3/ul (1.0-4.8); ABS Monocytes 2.1 10^3/ul (0-0.8); ABS Nucleated RBC 0.1 10^3/ul; Eosinophil % 1.8 %; Hematocrit 35 % (42-52); Hemoglobin 10.8 g/dL (14.0-18.0); Lymphocyte % 10.4 %; Mean Corpuscular HGB Conc 31 g/dL (31-36); Mean Corpuscular Hemoglobin 29 pg (27-31); Mean Corpuscular Volume 92 fL (80-94); Mean Platelet Volume 7.9 fL (7.4-10.4); Nucleated Red Blood Cells % 0.6; Platelet Count 373 10^3/uL (150-450); Red Blood Count 3.73 10^6 /uL (4.18-5.48); Red Cell Distribution Width 20 % (10-15); White Blood Count 13.9 10^3/uL (3.5-10.8)
[2021-08-14 07:14] LABS: ALT < 3 U/L (7-52); Alkaline Phosphatase 109 U/L (35-149); Blood Urea Nitrogen 62 mg/dL (6-24); Glucose 137 mg/dL (70-100); Total Protein 7.8 g/dL (6.4-8.9); eGFR CKD-EPI 7.6 (>60)
[2021-08-14 07:25] LABS: Anion Gap 20 mmol/L (2-11)
[2021-08-14 08:24] LABS: Anisocytosis 3+; Polychromasia 3+
[2021-08-14] MEDS: Isosorbide Mononit ER 30mg TAB PO SCH (08:41)
[2021-08-14] MEDS ORDERED: Phytonadione IV (Adult) 10 MG in NS 0.9% 50 ML 50 ML IV ONE (09:00)
[2021-08-14 12:15] LABS: Rapid COVID-19 Molecular Detected (Undetected)
[2021-08-14 14:37] LABS: Potassium Redraw 5.2 mmol/L (3.5-5.0)
[2021-08-14 14:43] LABS: Phosphorus 7.2 mg/dL (2.5-5.0)
[2021-08-14] MEDS: oxyCODONE/Acetamin 5/325 mg TAB PO PRN (16:35)
[2021-08-14] MEDS: Insulin GLARGINE 100 un/ml 10 ml VIAL SUBCUT SCH (20:19)
[2021-08-15 05:17] LABS: Hematocrit 33 % (42-52); Hemoglobin 10.3 g/dL (14.0-18.0); Mean Corpuscular HGB Conc 32 g/dL (31-36); Mean Corpuscular Hemoglobin 29 pg (27-31); Mean Corpuscular Volume 91 fL (80-94); Mean Platelet Volume 7.7 fL (7.4-10.4); Platelet Count 390 10^3/uL (150-450); Red Blood Count 3.59 10^6 /uL (4.18-5.48); Red Cell Distribution Width 20 % (10-15); White Blood Count 12.6 10^3/uL (3.5-10.8)
[2021-08-15 05:22] LABS: ABS Basophils 0.1 10^3/ul (0-0.2); ABS Eosinophils 0.2 10^3/ul (0-0.6); ABS Lymphocytes 1.1 10^3/ul (1.0-4.8); ABS Monocytes 1.7 10^3/ul (0-0.8); ABS Neutrophils 9.6 10^3/ul (1.5-7.7); ABS Nucleated RBC 0.1 10^3/ul; Eosinophil % 1.6 %; Lymphocyte % 8.5 %; Nucleated Red Blood Cells % 0.5
[2021-08-15 05:28] LABS: INR 2.11 (0.86-1.15)
[2021-08-15 05:36] LABS: ALT < 3 U/L (7-52); AST 28 U/L (13-39); Albumin 3.7 g/dL (3.2-5.2); Alkaline Phosphatase 107 U/L (35-149); Anion Gap 15 mmol/L (2-11); Blood Urea Nitrogen 54 mg/dL (6-24); CO2 Carbon Dioxide 25 mmol/L (22-32); Calcium 9.2 mg/dL (8.6-10.3); Chloride 93 mmol/L (101-111); Globulin 3.8 g/dL (2-4); Glucose 144 mg/dL (70-100); Sodium 133 mmol/L (135-145); Total Protein 7.5 g/dL (6.4-8.9); eGFR CKD-EPI 8.8 (>60)
[2021-08-15] MEDS: Isosorbide Mononit ER 30mg TAB PO SCH (08:06)
[2021-08-15] MEDS ORDERED: Albumin Human 5% 12.5 GM/250 ML BTL IV ONE (09:52)
[2021-08-15] MEDS: ceFAZolin 2 GM PREMIX 2 GM/50 ML BAG IVPB SCH (17:41)
[2021-08-15] MEDS: Insulin GLARGINE 100 un/ml 10 ml VIAL SUBCUT SCH (21:08)
[2021-08-16 07:46] LABS: Hematocrit 30 % (42-52); Hemoglobin 9.4 g/dL (14.0-18.0); Mean Corpuscular HGB Conc 31 g/dL (31-36); Mean Corpuscular Hemoglobin 29 pg (27-31); Mean Corpuscular Volume 93 fL (80-94); Mean Platelet Volume 7.6 fL (7.4-10.4); Platelet Count 371 10^3/uL (150-450); Red Blood Count 3.26 10^6 /uL (4.18-5.48); Red Cell Distribution Width 22 % (10-15); White Blood Count 11.4 10^3/uL (3.5-10.8)
[2021-08-16 07:47] LABS: ABS Basophils 0.1 10^3/ul (0-0.2); ABS Eosinophils 0.3 10^3/ul (0-0.6); ABS Lymphocytes 1.3 10^3/ul (1.0-4.8); ABS Monocytes 1.8 10^3/ul (0-0.8); Eosinophil % 2.3 %; Lymphocyte % 11.3 %; Nucleated Red Blood Cells % 0.3
[2021-08-16 08:01] LABS: INR 1.44 (0.86-1.15)
[2021-08-16 08:07] LABS: C Reactive Protein 85.36 mg/L (<8.01); Calcium 9.2 mg/dL (8.6-10.3); Potassium 4.5 mmol/L (3.5-5.0); eGFR CKD-EPI 11.4 (>60)
[2021-08-16] MEDS: Isosorbide Mononit ER 30mg TAB PO SCH (08:09)
[2021-08-16] MEDS ORDERED: Metoclopramide 5 MG/ML VIAL (10 mg) IV SLOW PU ONE (12:00)
[2021-08-16] MEDS ORDERED: Magnesium Hydroxide LIQ 30 ML UDC PO PRN (19:12)
[2021-08-16] MEDS: Polyethylene Glycol 3350 17 GM PACKET PO PRN (21:06)
[2021-08-16] MEDS: Senna TAB 8.6 mg TAB PO PRN (21:06)
[2021-08-16] MEDS: Insulin GLARGINE 100 un/ml 10 ml VIAL SUBCUT SCH (21:07)
[2021-08-17 06:07] LABS: ABS Basophils 0.1 10^3/ul (0-0.2); ABS Eosinophils 0.2 10^3/ul (0-0.6); ABS Lymphocytes 0.9 10^3/ul (1.0-4.8); ABS Monocytes 1.3 10^3/ul (0-0.8); ABS Neutrophils 8.1 10^3/ul (1.5-7.7); Eosinophil % 2.2 %; Hematocrit 30 % (42-52); Hemoglobin 9.6 g/dL (14.0-18.0); Lymphocyte % 8.2 %; Mean Corpuscular HGB Conc 32 g/dL (31-36); Mean Corpuscular Hemoglobin 29 pg (27-31); Mean Corpuscular Volume 93 fL (80-94); Mean Platelet Volume 7.5 fL (7.4-10.4); Nucleated Red Blood Cells % 0.1; Platelet Count 338 10^3/uL (150-450); Red Blood Count 3.27 10^6 /uL (4.18-5.48); Red Cell Distribution Width 22 % (10-15); White Blood Count 10.7 10^3/uL (3.5-10.8)
[2021-08-17 06:20] LABS: INR 1.4 (0.86-1.15)
[2021-08-17 06:23] LABS: ALT < 3 U/L (7-52); AST 21 U/L (13-39); Albumin 3.6 g/dL (3.2-5.2); Albumin/Globulin Ratio 1.1 (1-3); Alkaline Phosphatase 97 U/L (35-149); Blood Urea Nitrogen 61 mg/dL (6-24); CO2 Carbon Dioxide 27 mmol/L (22-32); Calcium 8.9 mg/dL (8.6-10.3); Chloride 91 mmol/L (101-111); Globulin 3.3 g/dL (2-4); Glucose 161 mg/dL (70-100); Magnesium 2.4 mg/dL (1.9-2.7); Sodium 133 mmol/L (135-145); Total Protein 6.9 g/dL (6.4-8.9)
[2021-08-17 06:29] LABS: Anion Gap 15 mmol/L (2-11); Potassium 5.2 mmol/L (3.5-5.0)
[2021-08-17] MEDS: Isosorbide Mononit ER 30mg TAB PO SCH (08:42)
[2021-08-17] MEDS ORDERED: Albuterol HFA INHALER 8 gm MDI INH ONE (19:06)
[2021-08-17] MEDS: Senna TAB 8.6 mg TAB PO PRN (21:26)
[2021-08-17] MEDS: Insulin GLARGINE 100 un/ml 10 ml VIAL SUBCUT SCH (21:28)
[2021-08-18 05:16] LABS: ABS Basophils 0.1 10^3/ul (0-0.2); ABS Eosinophils 0.3 10^3/ul (0-0.6); ABS Lymphocytes 0.8 10^3/ul (1.0-4.8); ABS Monocytes 1.3 10^3/ul (0-0.8); ABS Neutrophils 8.2 10^3/ul (1.5-7.7); Eosinophil % 2.7 %; Hematocrit 30 % (42-52); Hemoglobin 9.7 g/dL (14.0-18.0); Lymphocyte % 7.2 %; Mean Corpuscular HGB Conc 33 g/dL (31-36); Mean Corpuscular Hemoglobin 30 pg (27-31); Mean Corpuscular Volume 93 fL (80-94); Mean Platelet Volume 7.5 fL (7.4-10.4); Platelet Count 319 10^3/uL (150-450); Red Blood Count 3.19 10^6 /uL (4.18-5.48); Red Cell Distribution Width 22 % (10-15); White Blood Count 10.7 10^3/uL (3.5-10.8)
[2021-08-18 05:19] LABS: INR 1.55 (0.86-1.15)
[2021-08-18 05:49] LABS: Albumin 3.5 g/dL (3.2-5.2); CO2 Carbon Dioxide 24 mmol/L (22-32); Calcium 8.5 mg/dL (8.6-10.3); Chloride 90 mmol/L (101-111); Sodium 132 mmol/L (135-145)
[2021-08-18 05:53] LABS: Anion Gap 18 mmol/L (2-11); Potassium 5.9 mmol/L (3.5-5.0)
[2021-08-18 05:55] LABS: ALT < 3 U/L (7-52); AST 20 U/L (13-39); Alkaline Phosphatase 98 U/L (35-149); Blood Urea Nitrogen 82 mg/dL (6-24); Globulin 3.4 g/dL (2-4); Glucose 151 mg/dL (70-100); Total Protein 6.9 g/dL (6.4-8.9); eGFR CKD-EPI 6.1 (>60)
[2021-08-18] MEDS: Isosorbide Mononit ER 30mg TAB PO SCH (10:47)
[2021-08-18] MEDS: ceFAZolin 2 GM PREMIX 2 GM/50 ML BAG IVPB SCH (17:22)
[2021-08-18] MEDS: Insulin GLARGINE 100 un/ml 10 ml VIAL SUBCUT SCH (20:47)
[2021-08-19 07:56] VITALS: BP 143/55
[2021-08-19 08:48] LABS: Calcium 8.7 mg/dL (8.6-10.3); eGFR CKD-EPI 5.2 (>60)
[2021-08-19 09:21] LABS: Potassium 6.4 mmol/L (3.5-5.0)
== END 2021-08-19 10:30 | DRG 73 ==
LOC: MED 11:10 → SUATTDRO 11:10 → MED 08-16 19:49
PROVIDERS: ADMIT Student in an Organized Health Care Education/Training Program; ATTEND Internal Medicine

== ENCOUNTER 2021-08-22 17:49 | Observation (INO) ==
[2021-08-22] MEDS ORDERED: Lactated Ringers 1000 ml BAG 1,000 ML IV ONE (18:46)
[2021-08-22] MEDS ORDERED: Ondansetron 4 mg VIAL 2 MG/ML 2 ml VIAL IV ONE (18:47)
[2021-08-22] MEDS ORDERED: Metoprolol Tartrate 5 mg VIAL 5 ml VIAL (1 mg/ml) IV ONE ×3 (18:56→22:17)
[2021-08-22 19:08] LABS: ABS Basophils 0.1 10^3/ul (0-0.2); ABS Eosinophils 0.2 10^3/ul (0-0.6); ABS Lymphocytes 0.5 10^3/ul (1.0-4.8); ABS Monocytes 0.6 10^3/ul (0-0.8); ABS Neutrophils 7.2 10^3/ul (1.5-7.7); Eosinophil % 1.8 %; Hematocrit 29 % (42-52); Hemoglobin 9.6 g/dL (14.0-18.0); Lymphocyte % 5.7 %; Mean Corpuscular HGB Conc 33 g/dL (31-36); Mean Corpuscular Hemoglobin 30 pg (27-31); Mean Corpuscular Volume 93 fL (80-94); Mean Platelet Volume 7.3 fL (7.4-10.4); Nucleated Red Blood Cells % 0.1; Platelet Count 188 10^3/uL (150-450); Red Blood Count 3.17 10^6 /uL (4.18-5.48); Red Cell Distribution Width 22 % (10-15); White Blood Count 8.5 10^3/uL (3.5-10.8)
[2021-08-22 19:31] LABS: High Sens Troponin Baseline 47 pg/mL (<20)
[2021-08-22 19:53] LABS: ALT < 3 U/L (7-52); AST 24 U/L (13-39); Albumin 3.6 g/dL (3.2-5.2); Alkaline Phosphatase 110 U/L (35-149); Anion Gap 9 mmol/L (2-11); Blood Urea Nitrogen 24 mg/dL (6-24); CO2 Carbon Dioxide 35 mmol/L (22-32); CRP High Sensitivity 37.43 mg/L (<2.00); Chloride 92 mmol/L (101-111); Globulin 3.5 g/dL (2-4); Glucose 213 mg/dL (70-100); Magnesium 2.3 mg/dL (1.9-2.7); Potassium 3.7 mmol/L (3.5-5.0); Sodium 136 mmol/L (135-145); Total Protein 7.1 g/dL (6.4-8.9); eGFR CKD-EPI 17.4 (>60)
[2021-08-22 20:36] LABS: High Sensitivity Troponin 1 Hr 48 pg/mL (<20)
[2021-08-22] MEDS ORDERED: Ondansetron 4 mg VIAL 2 MG/ML 2 ml VIAL IV PRN (23:52)
[2021-08-23] MEDS ORDERED: Senna TAB 8.6 mg TAB PO PRN (03:29)
[2021-08-23] MEDS ORDERED: Magnesium Hydroxide LIQ 30 ML UDC PO PRN (03:29)
[2021-08-23] MEDS ORDERED: Polyethylene Glycol 3350 17 GM PACKET PO PRN (03:29)
[2021-08-23] MEDS ORDERED: Dextrose 50% Syringe 50 ml 25 GM/50 ML SYRINGE IV PUSH PRN (03:58)
[2021-08-23] MEDS: Collagenase 250 units/gm OINT 1 tube TOPICAL SCH (04:02)
[2021-08-23] MEDS ORDERED: Metoprolol Tartrate 5 mg VIAL 5 ml VIAL (1 mg/ml) IV ONE (06:27)
[2021-08-23] MEDS: B COMPLEX VITAMIN C FOLIC ACID PO SCH (07:30)
[2021-08-23] MEDS: NF: Multivitamins/Mins AREDS2 (NF) CAP PO SCH (07:31)
[2021-08-23] MEDS: CMCS: OMEGA-3 FATTY ACID 1000 mg(NF) PO SCH (07:31)
[2021-08-23] MEDS: Isosorbide Mononit ER 30mg TAB PO SCH (07:35)
[2021-08-23] MEDS: Metoprolol Succinate XL 200 mg TAB PO SCH (20:46)
[2021-08-23] MEDS: Insulin GLARGINE 100 un/ml 10 ml VIAL SUBCUT SCH (20:47)
[2021-08-24] MEDS: Isosorbide Mononit ER 30mg TAB PO SCH (07:37)
[2021-08-24] MEDS: CMCS: OMEGA-3 FATTY ACID 1000 mg(NF) PO SCH (07:38)
[2021-08-24] MEDS: NF: Multivitamins/Mins AREDS2 (NF) CAP PO SCH (07:39)
[2021-08-24] MEDS: B COMPLEX VITAMIN C FOLIC ACID PO SCH (07:39)
[2021-08-24] MEDS: Collagenase 250 units/gm OINT 1 tube TOPICAL SCH (07:39)
[2021-08-24] MEDS: Insulin GLARGINE 100 un/ml 10 ml VIAL SUBCUT SCH (20:52)
[2021-08-24] MEDS: Metoprolol Succinate XL 200 mg TAB PO SCH (20:54)
[2021-08-25 06:00] LABS: ABS Basophils 0.1 10^3/ul (0-0.2); ABS Eosinophils 0.3 10^3/ul (0-0.6); ABS Lymphocytes 0.7 10^3/ul (1.0-4.8); ABS Monocytes 0.8 10^3/ul (0-0.8); ABS Neutrophils 4.2 10^3/ul (1.5-7.7); Eosinophil % 4.5 %; Hematocrit 28 % (42-52); Hemoglobin 8.9 g/dL (14.0-18.0); Lymphocyte % 11.2 %; Mean Corpuscular HGB Conc 33 g/dL (31-36); Mean Corpuscular Hemoglobin 30 pg (27-31); Mean Corpuscular Volume 93 fL (80-94); Mean Platelet Volume 7.8 fL (7.4-10.4); Platelet Count 138 10^3/uL (150-450); Red Blood Count 2.95 10^6 /uL (4.18-5.48); Red Cell Distribution Width 21 % (10-15)
[2021-08-25 06:21] LABS: ALT < 3 U/L (7-52); AST 17 U/L (13-39); Albumin 3.2 g/dL (3.2-5.2); Alkaline Phosphatase 86 U/L (35-149); Anion Gap 11 mmol/L (2-11); Blood Urea Nitrogen 62 mg/dL (6-24); CO2 Carbon Dioxide 31 mmol/L (22-32); Calcium 8.7 mg/dL (8.6-10.3); Chloride 90 mmol/L (101-111); Globulin 3.3 g/dL (2-4); Glucose 96 mg/dL (70-100); Magnesium 2.6 mg/dL (1.9-2.7); Potassium 4.9 mmol/L (3.5-5.0); Sodium 132 mmol/L (135-145); Total Protein 6.5 g/dL (6.4-8.9); eGFR CKD-EPI 8.2 (>60)
[2021-08-25] MEDS ORDERED: Perflutren Lipid Microsphere 3 ML VIAL ONE (08:40)
[2021-08-25] MEDS: Isosorbide Mononit ER 30mg TAB PO SCH (09:52)
[2021-08-25] MEDS: CMCS: OMEGA-3 FATTY ACID 1000 mg(NF) PO SCH (09:53)
[2021-08-25] MEDS: B COMPLEX VITAMIN C FOLIC ACID PO SCH (09:55)
[2021-08-25] MEDS: Collagenase 250 units/gm OINT 1 tube TOPICAL SCH (09:56)
[2021-08-25] MEDS: NF: Multivitamins/Mins AREDS2 (NF) CAP PO SCH (10:00)
[2021-08-25 14:10] LABS: Hepatitis B Surface Antigen Nonreactive (Nonreactive)
[2021-08-25 14:28] LABS: Hepatitis B Surface Ab Not Immune (Immune)
[2021-08-25] MEDS ORDERED: SODIUM CHLORIDE IV SCH (17:00)
[2021-08-25] MEDS ORDERED: ceFAZolin 2 GM PREMIX 2 GM/50 ML BAG IVPB SCH (17:00)
[2021-08-25] MEDS ORDERED: CEFAZOLIN IV SCH (17:00)
[2021-08-25] MEDS: Insulin GLARGINE 100 un/ml 10 ml VIAL SUBCUT SCH (21:23)
[2021-08-25] MEDS: Metoprolol Succinate XL 200 mg TAB PO SCH (21:24)
[2021-08-26] MEDS: CMCS: OMEGA-3 FATTY ACID 1000 mg(NF) PO SCH (08:25)
[2021-08-26] MEDS: Isosorbide Mononit ER 30mg TAB PO SCH (08:29)
[2021-08-26] MEDS: B COMPLEX VITAMIN C FOLIC ACID PO SCH (08:30)
[2021-08-26] MEDS: Collagenase 250 units/gm OINT 1 tube TOPICAL SCH (08:31)
[2021-08-26] MEDS: NF: Multivitamins/Mins AREDS2 (NF) CAP PO SCH (08:31)
[2021-08-26] MEDS: Insulin GLARGINE 100 un/ml 10 ml VIAL SUBCUT SCH (22:01)
[2021-08-26] MEDS: Metoprolol Succinate XL 200 mg TAB PO SCH (22:05)
[2021-08-27] MEDS: Isosorbide Mononit ER 30mg TAB PO SCH (08:08)
[2021-08-27] MEDS: NF: Multivitamins/Mins AREDS2 (NF) CAP PO SCH (08:10)
[2021-08-27] MEDS: B COMPLEX VITAMIN C FOLIC ACID PO SCH (08:10)
[2021-08-27] MEDS: CMCS: OMEGA-3 FATTY ACID 1000 mg(NF) PO SCH (08:10)
[2021-08-27] MEDS: Collagenase 250 units/gm OINT 1 tube TOPICAL SCH (08:10)
[2021-08-27 13:39] VITALS: BP 127/79
[2021-08-27 15:30] LABS: Rapid COVID-19 Molecular Undetected (Undetected)
== END 2021-08-27 16:15 ==
LOC: ED 17:49 → SUATTDRO 08-23 00:17 → EDHOLD 08-23 00:17 → INTOOBSV 08-23 00:17 → MEDTELE 08-23 02:05 → SUATTDRO 08-23 02:11 → MEDTELE 08-23 02:13
PROVIDERS: ADMIT Internal Medicine; ATTEND Internal Medicine

== ENCOUNTER 2021-10-14 07:30 | Inpatient (IN) ==
[~2021-10-14 07:30] MED LIST: Buffered Lidocaine 1% SYRIN 1 ml INTRADERM ONE; Famotidine IV 10 MG/ML 2 ml VIAL (20 mg) IV ONE; Lactated Ringers 1000 ml BAG 1,000 ML IV SCH
[2021-10-16] MEDS ORDERED: Buffered Lidocaine 1% SYRIN 1 ml INTRADERM ONE (06:00)
[2021-10-16] MEDS ORDERED: Lactated Ringers 1000 ml BAG 1,000 ML IV SCH ×2 (06:00→15:00)
[2021-10-16] MEDS ORDERED: NS 0.9% 1000 ml BAG 1,000 ML IV SCH (06:00)
[2021-10-16] MEDS ORDERED: Clindamycin 900 MG/D5W BAG 900 MG/50 ML BAG IVPB ONE (10:27)
[2021-10-16] MEDS ORDERED: Midazolam 2 mg/2 ml VIAL 1 mg/ml 2 ml VIAL (2 mg) ONE (11:32)
[2021-10-16] MEDS ORDERED: fentaNYL 250 mcg/5 ml 50 MCG/ML 5 ml VIAL (250 MCG) ONE (11:32)
[2021-10-16] MEDS ORDERED: Ondansetron 4 mg VIAL 2 MG/ML 2 ml VIAL ONE (11:33)
[2021-10-16] MEDS ORDERED: Propofol 10 MG/ML 20 ML BTL ONE ×2 (11:33)
[2021-10-16] MEDS ORDERED: Rocuronium 50 mg VIAL 10 mg/ml 5 ml VIAL (50 mg) ONE ×2 (11:33→12:30)
[2021-10-16] MEDS ORDERED: Phenylephrine IV 10 MG/ML 1 ml VIAL ONE ×3 (12:30→14:46)
[2021-10-16] MEDS ORDERED: Bupivacaine 0.25% SDV PF 10 ML VIAL INJ ONE (12:31)
[2021-10-16] MEDS ORDERED: Sugammadex 500 MG/5 ML 5 ml VIAL IV PUSH ONE (13:35)
[2021-10-16] MEDS ORDERED: Naloxone 0.4 mg VIAL 0.4 mg/ml 1 ml VIAL IV PRN (13:38)
[2021-10-16] MEDS ORDERED: fentaNYL 100 mcg/2 ml 50 MCG/ML VIAL IV PRN (13:38)
[2021-10-16] MEDS ORDERED: Acetaminophen IV 1 GM/100ML 100 ML IV PRN (13:38)
[2021-10-16] MEDS ORDERED: Ondansetron 4 mg VIAL 2 MG/ML 2 ml VIAL IV PRN (13:38)
[2021-10-16] MEDS ORDERED: Lactulose 30 ml UDC PO PRN (14:25)
[2021-10-16] MEDS ORDERED: Morphine 2 MG/ML SYRINGE IV PRN (14:25)
[2021-10-16] MEDS ORDERED: Metoprolol Tartrate 5 mg VIAL 5 ml VIAL (1 mg/ml) ONE (14:31)
[2021-10-16] MEDS ORDERED: Metoprolol Tartrate 5 mg VIAL 5 ml VIAL (1 mg/ml) IV ONE (14:34)
[2021-10-16] MEDS ORDERED: Magnesium Hydroxide LIQ 30 ML UDC PO PRN (14:35)
[2021-10-16] MEDS ORDERED: NON FORMULARY MED (Menthol-Zinc Oxide [Calmoseptine] 0.44-20.6 % Ointment) TOPICAL PRN (14:35)
[2021-10-16] MEDS ORDERED: Patiromer POWDER 8.4 GM PAK PO PRN (14:35)
[2021-10-16] MEDS ORDERED: Polyethylene Glycol 3350 17 GM PACKET PO PRN (14:35)
[2021-10-16] MEDS ORDERED: Senna TAB 8.6 mg TAB PO PRN (14:35)
[2021-10-16] MEDS ORDERED: ceFAZolin VIAL 2 GM in NS 0.9% 100 ml BAG 100 ML IVPB ONE (14:51)
[2021-10-16] MEDS ORDERED: Insulin ASPART (NF) 1 UNIT SUBCUT SCH (15:00)
[2021-10-16] MEDS ORDERED: ceFAZolin 2 GM in NS PREMIX 2 GM/100 ML BAG IVPB ONE (15:19)
[2021-10-16 17:11] LABS: ABS Eosinophils 0.1 10^3/ul (0-0.6); ABS Lymphocytes 0.9 10^3/ul (1.0-4.8); ABS Monocytes 0.8 10^3/ul (0-0.8); ABS Neutrophils 7.9 10^3/ul (1.5-7.7); Eosinophil % 1.2 %; Hematocrit 31 % (42-52); Hemoglobin 9.8 g/dL (14.0-18.0); Lymphocyte % 9.6 %; Mean Corpuscular HGB Conc 31 g/dL (31-36); Mean Corpuscular Hemoglobin 30 pg (27-31); Mean Corpuscular Volume 96 fL (80-94); Mean Platelet Volume 7.2 fL (7.4-10.4); Nucleated Red Blood Cells % 0.1; Platelet Count 223 10^3/uL (150-450); Red Blood Count 3.25 10^6 /uL (4.18-5.48); Red Cell Distribution Width 17 % (10-15); White Blood Count 9.8 10^3/uL (3.5-10.8)
[2021-10-16 18:25] LABS: Albumin 3.4 g/dL (3.2-5.2)
[2021-10-16] MEDS ORDERED: Dextrose 50% Syringe 50 ml 25 GM/50 ML SYRINGE IV PUSH PRN (18:25)
[2021-10-16 18:31] LABS: Anion Gap 18 mmol/L (2-11); CO2 Carbon Dioxide 21 mmol/L (22-32); Calcium 8.7 mg/dL (8.6-10.3); Chloride 92 mmol/L (101-111); Globulin 3.3 g/dL (2-4); Sodium 131 mmol/L (135-145); Total Protein 6.7 g/dL (6.4-8.9)
[2021-10-16 18:32] LABS: ALT 9 U/L (7-52); Alkaline Phosphatase 54 U/L (35-149); Blood Urea Nitrogen 47 mg/dL (6-24); Glucose 161 mg/dL (70-100); eGFR CKD-EPI 14.8 (>60)
[2021-10-16] MEDS ORDERED: Metoprolol Succinate XL 200 mg TAB PO SCH ×2 (21:00)
[2021-10-16] MEDS ORDERED: Insulin GLARGINE 100 un/ml 10 ml VIAL SUBCUT SCH (21:00)
[2021-10-16] MEDS: CMC:Lovastatin 10 mg TAB (NF) PO SCH (22:15)
[2021-10-16] MEDS ORDERED: Metoprolol Tartrate 5 mg VIAL 5 ml VIAL (1 mg/ml) IV PRN (22:36)
[2021-10-16] MEDS ORDERED: Lactated Ringers 500 ml BAG 500 ML IV ONE (23:32)
[2021-10-16] MEDS: Ondansetron ODT 4 mg TAB 4 MG TAB PO PRN (23:56)
[2021-10-17 02:11] LABS: Magnesium 2.5 mg/dL (1.9-2.7)
[2021-10-17 06:17] LABS: Hematocrit 30 % (42-52); Hemoglobin 9.6 g/dL (14.0-18.0); Mean Platelet Volume 7.2 fL (7.4-10.4); Platelet Count 260 10^3/uL (150-450)
[2021-10-17 06:41] LABS: Calcium 9.4 mg/dL (8.6-10.3); Potassium 4.2 mmol/L (3.5-5.0); eGFR CKD-EPI 12.6 (>60)
[2021-10-17] MEDS: Isosorbide Mononit ER 30mg TAB PO SCH (08:01)
[2021-10-17] MEDS: Aspirin EC 81 mg TAB.EC (enteric coated) PO SCH (08:02)
[2021-10-17] MEDS ORDERED: [UNRECOGNIZED DRUG - OTHER] PO SCH (09:00)
[2021-10-17] MEDS ORDERED: CINNAMON BARK 500 MG PO SCH (09:00)
[2021-10-17] MEDS ORDERED: CBD PO SCH (09:00)
[2021-10-17] MEDS ORDERED: B COMPLEX VITAMIN C FOLIC ACID PO SCH (09:00)
[2021-10-17] MEDS ORDERED: AMINO ACIDS PROTEIN HYDROLYS PO SCH (09:00)
[2021-10-17] MEDS ORDERED: CRANBERRY 500 MG PO SCH (09:00)
[2021-10-17] MEDS: [UNRECOGNIZED DRUG - OTHER] PO SCH (09:50)
[2021-10-17] MEDS: POVIDONE IODINE 10% TOPICAL SCH (09:50)
[2021-10-17] MEDS: Multivitamins/Mins AREDS2 (NF) CAP PO SCH (09:50)
[2021-10-17] MEDS: OMEGA DHA EPA FISH OIL PO SCH (09:50)
[2021-10-17] MEDS ORDERED: Morphine 2 MG/ML SYRINGE IV ONE ×2 (10:48→11:08)
[2021-10-17] MEDS: ceFAZolin 2 GM in NS PREMIX 2 GM/100 ML BAG IVPB SCH (17:23)
[2021-10-17] MEDS: Ondansetron ODT 4 mg TAB 4 MG TAB PO PRN (19:34)
[2021-10-17] MEDS: CMC:Lovastatin 10 mg TAB (NF) PO SCH (20:46)
[2021-10-17] MEDS: Metoprolol Succinate XL 200 mg TAB PO SCH (20:49)
[2021-10-17] MEDS: Insulin GLARGINE 100 un/ml 10 ml VIAL SUBCUT SCH (20:49)
[2021-10-18] MEDS: Ondansetron 4 mg VIAL 2 MG/ML 2 ml VIAL IV PRN ×2 (03:44→10:49)
[2021-10-18 06:18] LABS: Hematocrit 32 % (42-52); Hemoglobin 10.4 g/dL (14.0-18.0); Mean Platelet Volume 7.4 fL (7.4-10.4); Platelet Count 279 10^3/uL (150-450)
[2021-10-18] MEDS: Aspirin EC 81 mg TAB.EC (enteric coated) PO SCH (09:00)
[2021-10-18] MEDS: Isosorbide Mononit ER 30mg TAB PO SCH (09:00)
[2021-10-18] MEDS: OMEGA DHA EPA FISH OIL PO SCH (09:05)
[2021-10-18] MEDS: POVIDONE IODINE 10% TOPICAL SCH (09:05)
[2021-10-18] MEDS: Multivitamins/Mins AREDS2 (NF) CAP PO SCH (09:05)
[2021-10-18] MEDS: [UNRECOGNIZED DRUG - OTHER] PO SCH (09:05)
[2021-10-18] MEDS: Metoprolol Succinate XL 200 mg TAB PO SCH (20:42)
[2021-10-18] MEDS: CMC:Lovastatin 10 mg TAB (NF) PO SCH (20:42)
[2021-10-18] MEDS: Insulin GLARGINE 100 un/ml 10 ml VIAL SUBCUT SCH (20:42)
[2021-10-19 06:12] LABS: Hematocrit 29 % (42-52); Hemoglobin 9.1 g/dL (14.0-18.0); Platelet Count 283 10^3/uL (150-450)
[2021-10-19] MEDS: Isosorbide Mononit ER 30mg TAB PO SCH (08:26)
[2021-10-19] MEDS: Aspirin EC 81 mg TAB.EC (enteric coated) PO SCH (08:26)
[2021-10-19] MEDS: CMC:OMEGA-3 FATTY ACID 1000 mg(NF) PO SCH (08:26)
[2021-10-19] MEDS: Multivitamins/Mins AREDS2 (NF) CAP PO SCH (08:28)
[2021-10-19] MEDS: POVIDONE IODINE 10% TOPICAL SCH (08:28)
[2021-10-19] MEDS: CMC:Lovastatin 10 mg TAB (NF) PO SCH (21:33)
[2021-10-19] MEDS: Metoprolol Succinate XL 200 mg TAB PO SCH (21:33)
[2021-10-19] MEDS: Insulin GLARGINE 100 un/ml 10 ml VIAL SUBCUT SCH (21:35)
[2021-10-20 05:40] LABS: Hematocrit 27 % (42-52); Hemoglobin 8.9 g/dL (14.0-18.0); Mean Platelet Volume 7.1 fL (7.4-10.4); Platelet Count 289 10^3/uL (150-450)
[2021-10-20 12:40] LABS: Hepatitis B Surface Antigen Nonreactive (Nonreactive)
[2021-10-20 12:45] LABS: Hepatitis B Core IgM Nonreactive (Nonreactive)
[2021-10-20 12:57] LABS: Hepatitis B Surface Ab Not Immune (Immune)
[2021-10-20] MEDS: CMC:OMEGA-3 FATTY ACID 1000 mg(NF) PO SCH (13:34)
[2021-10-20] MEDS: Isosorbide Mononit ER 30mg TAB PO SCH (13:36)
[2021-10-20] MEDS: Aspirin EC 81 mg TAB.EC (enteric coated) PO SCH (13:36)
[2021-10-20] MEDS: Multivitamins/Mins AREDS2 (NF) CAP PO SCH (13:38)
[2021-10-20] MEDS: POVIDONE IODINE 10% TOPICAL SCH (13:39)
[2021-10-20] MEDS: ceFAZolin 2 GM in NS PREMIX 2 GM/100 ML BAG IVPB SCH (17:27)
[2021-10-20] MEDS: Insulin GLARGINE 100 un/ml 10 ml VIAL SUBCUT SCH (21:12)
[2021-10-20] MEDS: CMC:Lovastatin 10 mg TAB (NF) PO SCH (21:12)
[2021-10-20] MEDS: Metoprolol Succinate XL 200 mg TAB PO SCH (21:12)
[2021-10-21 06:02] LABS: Hematocrit 29 % (42-52); Hemoglobin 9.2 g/dL (14.0-18.0); Mean Platelet Volume 6.9 fL (7.4-10.4); Platelet Count 318 10^3/uL (150-450)
[2021-10-21] MEDS: POVIDONE IODINE 10% TOPICAL SCH (09:28)
[2021-10-21] MEDS: Multivitamins/Mins AREDS2 (NF) CAP PO SCH (09:28)
[2021-10-21] MEDS: Aspirin EC 81 mg TAB.EC (enteric coated) PO SCH (09:30)
[2021-10-21] MEDS: Isosorbide Mononit ER 30mg TAB PO SCH (09:32)
[2021-10-21] MEDS: CMC:OMEGA-3 FATTY ACID 1000 mg(NF) PO SCH (09:33)
[2021-10-21 11:39] VITALS: BP 108/63
== END 2021-10-21 14:42 | DRG 617 ==
LOC: EDSTATUS 07:30 → AA 10-16 09:48 → MEDTELE 10-16 19:56
PROVIDERS: ADMIT Orthopaedic Surgery; ATTEND Orthopaedic Surgery
PROC: O.ORAMP (2021-10-16 12:00)